=== PATIENT | female | born 1980 | race Caucasian/White ===

== ENCOUNTER → 2021-05-04 | Outpatient (CLI) | payer BC ==
--- NOTE | 2021-05-04 12:35 | KCIC ---
Examination: MRI of the left elbow without contrast HISTORY: History of left ankle pain COMPARISON: None available TECHNIQUE: Multiplanar, multisequence MR imaging of the left elbow was performed without contrast FINDINGS: The attachment of the triceps tendon to the olecranon processes grossly appears intact. The alignment of the elbow joint grossly appears unremarkable. The ulnar collateral ligament, radial collateral li gament, lateral ulnar collateral ligament appears intact. The radial collateral ligament appears inta ct. Mild increased T2 signal identified at the attachment of the common flexor tendon attachment to the m edial epicondyle could be mild medial epicondylitis. Small elbow joint effusion identified. No eviden ce of fracture identified. Ulnar nerve identified identified within the cubital tunnel. IMPRESSION: 1. Mild increased T2 signal identified at the attachment of the common flexor tendon attachment to t he medial epicondyle could be mild medial epicondylitis. 2. Small elbow joint effusion. Electronically signed by: Zachary Connell MD (05/04/2021 12:32 PM) [id number]
== END ==
LOC: KCIC MRI 10:11
PROVIDERS: ATTEND Physician Assistant
DX: S52.042A Displaced fracture of coronoid process of left ulna, initial encounter for closed fracture (principal); M25.422 Effusion, left elbow; W19.XXXA Unspecified fall, initial encounter; Y93.89 Activity, other specified; Y92.89 Other specified places as the place of occurrence of the external cause; Y99.8 Other external cause status
CPT/HCPCS: 73221